=== PATIENT | male | born 1955 | race African-American/Black ===

== ENCOUNTER → 2016-11-17 | Outpatient (CLI) | payer OTHER ==
[~2016-11-17] VITALS: Ht 182.9 cm; Wt 81.2 kg
[~2016-11-17] MED LIST: B COMPLETE1 EAC1 PO; BLOOD PRESSURE MED; CELEBREX 200 M200 MG PO; GABAPENTIN800 M1 PO; GLUCOPHAGE XR500 MG PO; HYDROCHLOROTHIA25 M1 PO; HYDROCODON-ACE1 EAC5 PO; INSULIN; LIDOCAINE PATCH; LIDODERM 5%1 PATCH TOP; LISINOPRIL40 MG PO; METFORMIN HCL500 MG PO; METFORMIN PO; MOBIC15 MG PO; MORPHINE SULFAT15 M3 PO; MS CONTIN15 MG PO; MUSCLE RELAXER; NEURONTIN600 MG PO; NEURONTIN800 MG PO; NORCO 10-325 T1 EACH PO; NORVASC10 MG PO; OXECTA5 MG PO; OXYCODONE HCL 55 MG PO; OXYCODONE HCL5 M1 PO; PERCOCET 7.5-51 EACH PO; PREDNISONE 20 M20 MG PO; REMERON15 M1 PO; REMERON15 MG PO; SLEEPING PILL; TIZANIDINE HCL4 MG PO; VIAGRA100 MG PO; VIAGRA50 MG PO; VITAMIN B-12500 MCG PO; VITAMIN D 5050000 I1 PO; VITAMIN E600 UNIT PO; WATER PILL; ZANAFLEX4 MG PO; [UNRECOGNIZED DRUG - OTHER] PO
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
[2016-11-17 13:04] VITALS: BP 144/84
== END | disposition home or self-care (01) ==
LOC: PAIN 11-13 06:45
DX: M54.12 Radiculopathy, cervical region (principal); Z98.890 Other specified postprocedural states; M54.16 Radiculopathy, lumbar region; M17.0 Bilateral primary osteoarthritis of knee; F17.210 Nicotine dependence, cigarettes, uncomplicated

== ENCOUNTER → 2017-02-16 | Outpatient (CLI) | payer OTHER ==
[~2017-02-16] VITALS: Ht 182.9 cm; Wt 79.4 kg
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
[2017-02-16 10:10] VITALS: BP 146/91
== END | disposition home or self-care (01) ==
LOC: PAIN 07:10
DX: M54.16 Radiculopathy, lumbar region (principal); G89.29 Other chronic pain; M88.9 Osteitis deformans of unspecified bone; F17.210 Nicotine dependence, cigarettes, uncomplicated; Z79.891 Long term (current) use of opiate analgesic; Z98.890 Other specified postprocedural states; Z88.6 Allergy status to analgesic agent; Z88.8 Allergy status to other drugs, medicaments and biological substances; Z79.899 Other long term (current) drug therapy

== ENCOUNTER → 2017-07-13 | Outpatient (CLI) | payer OTHER ==
[~2017-07-13] VITALS: Ht 182.9 cm; Wt 86.1 kg
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
[2017-07-13 11:07] VITALS: BP 132/78
== END ==
LOC: PAIN 07:34
DX: M54.16 Radiculopathy, lumbar region (principal); M79.1 Myalgia; I10 Essential (primary) hypertension; Z98.890 Other specified postprocedural states

== ENCOUNTER → 2017-11-12 | Outpatient (CLI) | payer OTHER ==
[~2017-11-12] VITALS: Ht 182.9 cm; Wt 81.3 kg
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
[2017-11-12 11:02] VITALS: BP 136/83
== END | disposition home or self-care (01) ==
LOC: PAIN 06:53
DX: M53.3 Sacrococcygeal disorders, not elsewhere classified (principal); G89.29 Other chronic pain; M54.16 Radiculopathy, lumbar region; Z98.890 Other specified postprocedural states; F17.200 Nicotine dependence, unspecified, uncomplicated

== ENCOUNTER → 2017-11-26 | Outpatient (CLI) | payer OTHER ==
[~2017-11-26] VITALS: Ht 182.9 cm; Wt 78.0 kg
--- NOTE | ~2017-11-26 | HPC ---
[facility] [place] [address] PAIN MANAGEMENT CONSULTATION Name: DANA UMANZOR JR Room #: REG [facility].#: [id number] Admission: 11/26/17 Attend Phys: Trey Gutierrez DO Discharge: Date of : 55 Report #: [id number] THIS REPORT FOR: //name// CC: FAM unknown Trey Gutierrez The patient is a 62-year-old gentleman well known to the pain clinic being treated for lumbar radiculopathy, history of cervical decompressive laminectomy for myelopathy, axial back pain requiring complex medication management. Last seen in the pain clinic on 11/12/2017. He had acute exacerbation of left L5 radicular pain and low back pain following lifting his 's wheelchair. We did a left SI joint injection at last visit with good yet very transient relief of symptoms. He has ongoing lancinating pain down the L5 distribution. We elected to proceed with epidural injection under fluoroscopy today. ASSESSMENT: Symptomatic lumbar radiculopathy, left L5 distribution. PROCEDURE: Lumbar epidural injection under fluoroscopy. PROCEDURE NOTE: After both written and informed consent to include risk of spinal cord damage, increased pain, weakness and dural puncture, the patient was taken to the fluoroscopy suite, placed in the prone position. After sterile prep and drape, a skin wheal with lidocaine was raised. A 22-gauge epidural Tuohy needle was inserted in the midline at L5-S1 with good loss to resistance. Negative aspiration for cerebrospinal fluid or blood was noted. Then 1 mL of Omnipaque under biplanar fluoroscopy showed good spread within the epidural space. This was followed with 80 mg of triamcinolone plus 1 mL of 1.5% preservative-free Xylocaine, 0.5 mL Xylocaine was then injected to flush the needle; it was removed. The patient was monitored for an appropriate period of time and discharged in good and stable condition. <ELECTRONICALLY SIGNED> By: Trey Gutierrez DO 11/27/17 0654 [id number] Trey Gutierrez DO /nt
[2017-11-26 11:00] VITALS: BP 139/91
== END | disposition home or self-care (01) ==
LOC: PAIN 07:24
DX: M54.16 Radiculopathy, lumbar region (principal); Z98.890 Other specified postprocedural states; F17.210 Nicotine dependence, cigarettes, uncomplicated

== ENCOUNTER → 2018-03-12 | Outpatient (CLI) | payer OTHER ==
[~2018-03-12] VITALS: Ht 182.9 cm; Wt 81.6 kg
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
[2018-03-12 11:13] VITALS: BP 172/93
== END ==
LOC: PAIN 07:06
DX: M54.16 Radiculopathy, lumbar region (principal); M54.12 Radiculopathy, cervical region; Z79.899 Other long term (current) drug therapy; E11.9 Type 2 diabetes mellitus without complications

== ENCOUNTER → 2018-06-11 | Outpatient (CLI) | payer OTHER ==
[~2018-06-11] VITALS: Ht 182.9 cm; Wt 89.0 kg
[~2018-06-11] MED LIST changes: +FLEXERIL PO; +MEDROLDOSEPACK PO
[2018-06-11 09:07] VITALS: BP 145/78
--- NOTE | 2018-06-11 09:22 | NUR ---
Pain Clinic Assessment: 1. History of Osteoarthritis: DENIES History of Rheumatoid Arthritis: no 2. Height: 6 ft. 0 in. 182.9 cm. Weight: 196.2 lb. oz. 88.996 kg. Patient's BMI: 26.6 3. Vital Signs: BP: 145/78 Pulse: 82 Resp: 16 Temp: 02 Sat: 100 ECG Mon: 4. Pain Intensity: neck-10,back 7-8 5. Fall Risk: Dizziness: Y Needs help standing or walking: N Fallen in the last 3 months: N Fall risk comments: 6. Patient on Blood Thinner: None 7. History of Hypertension: Y 8. Opioid Therapy greater than 6 weeks: Y Opiate Contract Signed: 11/26/15 9. Risk Assessment Tool Provided: 4-moderate risk 10. Functional Assessment Tool: / 11. Recreational Drug Use: Never Drug Type: Tobacco Use: Current Every Day Smoker Tobacco Type: Cigars Amount or Packs/day: OCCASIONAL How Many Years: 44 Alcohol Use: No Frequency: Quant:
--- NOTE | 2018-06-14 07:11 | HPC ---
[facility] [address] [place] [address] PAIN MANAGEMENT CONSULTATION Name: DANA UMANZOR JR [facility] [id number] Admission: 06/11/18 Attend Phys: Shira Banerjee Discharge: Date of : 55 Report #: [id number] THIS REPORT FOR: //name// CC: Shira Banerjee FAM unknown DATE OF SERVICE: 06/11/2018 CHIEF COMPLAINT: Chronic low back pain, lumbar radiculopathy, status post decompression laminectomy and neck pain. HISTORY OF PRESENT ILLNESS: The patient returns today for medication refill for his ongoing chronic low back pain. Today, he is also complaining of significant neck pain. The patient has a history of cervical decompression laminectomy and was quite myelopathic prior to his neck surgery. He tells me that he started having some spasms in his neck on Thursday and has been significantly getting worse. Does have some radicular symptoms down both of his arms and most of his pain as the cause of spasms are in his neck area. He complains of 10/10 pain in his neck and his pain score today in his lower back is 7/8. He has tried his tizanidine that he takes for his normal muscle spasm that has not been helpful and he has been using a heating pad. He tells me that it has been making it hard to care for his who he cares for who is in a wheelchair. He does complain of some numbness and tingling also in his left arm. Pain is worse with moving, any activity, better with lying down and heating pad and his narcotic medication. He would like a refill of medications today and to try possibly a different muscle relaxant to see if that helps his neck. ALLERGIES: ASPIRIN AND MELOXICAM. CURRENT LIST OF MEDICATIONS: OxyIR 5 mg #75, 2-3 times a day, MS Contin 15 mg 3 times a day, tizanidine 4 mg up to 4 times a day, mirtazapine 15 mg at bedtime, metformin 500 mg twice a day, vitamin B12 daily, gabapentin 800 mg 3 times a day, vitamin E, amlodipine 10 mg daily and lisinopril 60 mg daily. PQRS: 1. He has a history of osteoarthritis in his lower back. He is not being treated for rheumatoid arthritis. 2. Height 6 feet, weight is 196, BMI is 26.6. 3. Vital signs: Blood pressure 145/78, pulse is 82, respirations 16, oxygen sat 100%. 4. Pain score 10/10 in his neck, 7-8/10 in his lower back. 5. Fall risk. He denies any falls in the last 3 months. He does not need help walking or standing. He does have some dizziness. 6. The patient is not on any blood thinners and does have a history of antihypertensive medications. 7. Opiate therapy is greater than 6 weeks, therefore [place] [address] PAIN MANAGEMENT CONSULTATION Name: DANA UMANZOR Room #: REG [facility] Carlos#: [id number] Admission: 06/11/18 Attend Phys: Shira Banerjee Discharge: Date of : 55 Report #: [id number] the chart. 8. His risk assessment tool is moderate and his functional assessment is a 55/70. 9. Recreational drug use, the patient denies. He does smoke cigars daily and does not drink alcohol. We did check the prescription monitoring system. The patient is on time for his medication refills today. He tells me that he does safeguard his medications and there are urine drug screens on the chart that are appropriate. PHYSICAL EXAMINATION: GENERAL: This is a well-developed, well-nourished black gentleman who appears his stated age. He is alert and orientated. His affect is appropriate. HEENT: Normocephalic, atraumatic. Extraocular eye muscles are intact. Sclerae are nonicteric. Mucous membranes are moist. NECK: Significant pain with range of motion, especially midline with some radiating pain into his left arm with some numbness and tingling. He does have a well-healed scar in his cervical area. MUSCULOSKELETAL: Upper extremity strength judged to be 5/5 for all major muscle groups. He does complain of some numbness and tingling in the C5 through C7 distribution in his left arm. Lower extremity muscle strength judged to be 5/5 in all major muscle groups. He does complain of some low back discomfort in the L4-L5 area in his back. He does walk with antalgic gait. IMPRESSION: 1. Lumbar radicular pain. 2. Cervical radicular pain, status post cervical decompression laminectomy. 3. Chronic back pain. 4. Diabetes. We reviewed the fact that opiate medications are being used to provide analgesia adequate to support activities of daily living, not attempting to achieve a specific pain score on the 0-10 Visual Analog Scale. The current opiate medications are providing sufficient analgesia to allow the patient to participate in activities of daily living. The patient is not exhibiting any aberrant behavior suggestive of drug diversion. The patient is not having any adverse reactions to medications. The patient is not suffering from daytime somnolence or mental acuity changes. The patient is managing opiate-induced constipation with appropriate suwh-dtn-qclmvyd agents and dietary considerations. The patient was counseled on concern for caution with operating a motor vehicle while using opiate medications. A physical exam was performed and the patient's functional status was evaluated. All patients with back pain were advised against the bed rest greater than 4 days and were advised to return to normal activities. Pain score assessment was noted and the treatment plan was reviewed with the patient. All current [facility] [address] [place] [address] PAIN MANAGEMENT CONSULTATION Name: DANA UMANZOR Room #: [facility] [id number] Admission: 06/11/18 Attend Phys: Shira Banerjee Discharge: Date of : 55 Report #: [id number] medications, both prescribed and OTC were reviewed and reconciled on the electronic medical record. Tobacco screening was accomplished and smoking cessation was advised when indicated. BMI was noted and diet/exercise modification was recommended for all patients following outside normal parameters. I reviewed with the patient today their responsibilities to safeguard prescription medications, reviewed their responsibility to utilize medications only as prescribed by the physician. They are to seek and receive pain medications only from 1 physician group ( [facility]). They are to use 1 pharmacy and keep the clinic informed if they change pharmacies. Their responsibilities include making followup visits in a timely fashion and to avoid abrupt discontinuation of medication usage. Their responsibilities further include bringing their medications (bottles from the pharmacy with residual pills) to the visit for possible confirmation of pill counts and the patient understands it is their responsibility to submit to random drug screens to ensure both that the medications prescribed are present, and that no other controlled substances are present. All prescriptions provided today were generated electronically. PLAN: 1. We discussed treatment options today. The patient tells me that his pain has significantly increased this week in his cervical area, unsure if it is related to the weather or if he pinched a nerve. Muscle relaxant that he takes tizanidine has not been helpful. We will try cyclobenzaprine 10 mg 3 times a day, #90, script given with one additional refill. The patient is to stop his tizanidine, likely try this muscle relaxant and see if it is more helpful in relieving some of his pain. He is to continue to take heat or alternate with ice to his neck and cautioned him not to use the heat on too long. 2. The patient was given a script for a Medrol Dosepak today to see if that helps reduce some of his inflammation that is in his neck. He does have significant history of cervical issues that required a decompression laminectomy. If this Medrol Dosepak does not help calm it down, we may try an injection by Dr. Pedroza and if that is not helpful, we will have him return to Dr. Montero, but the patient will try some medications to see if it is acute only a few days in nature at this point. The patient is agreeable with this plan of care. His last MRI is from 2013 also, so we will revisit that if maybe if the pain continues. 3. Script given for his MS Contin 15 mg, #90 to release today, 4 and 8-week and OxyIR 5 mg #75 to be released today, 4 and 8-week. 4. The patient will return in 2 weeks if his pain is not better in his neck, but if it has subsided with the medications then we will see him in 3 months' [facility] [address] [place] [address] PAIN MANAGEMENT CONSULTATION Name: DANA UMANZOR Room #: REG [facility] Gonzalez#: [id number] Admission: 06/11/18 Attend Phys: Shira Banerjee Discharge: Date of : 55 Report #: [id number] time frame. The patient is agreeable with this plan of care. The patient is seen in collaboration today with Dr. Pedroza. <ELECTRONICALLY SIGNED> By: Shira Banerjee 06/14/18 0711 1009 1251 Shira Banerjee /nt
== END ==
LOC: PAIN 06:49
DX: M54.16 Radiculopathy, lumbar region (principal); M54.12 Radiculopathy, cervical region; M96.1 Postlaminectomy syndrome, not elsewhere classified; G89.29 Other chronic pain; E11.9 Type 2 diabetes mellitus without complications; Z79.899 Other long term (current) drug therapy

== ENCOUNTER → 2018-09-03 | Outpatient (CLI) | payer OTHER ==
[~2018-09-03] VITALS: Ht 182.9 cm; Wt 87.1 kg
[2018-09-03 10:39] VITALS: BP 131/80
--- NOTE | 2018-09-03 10:42 | NUR ---
Pain Clinic Assessment: 1. History of Osteoarthritis: DENIES History of Rheumatoid Arthritis: no 2. Height: 6 ft. 0 in. 182.9 cm. Weight: 192.0 lb. oz. 87.091 kg. Patient's BMI: 26.0 3. Vital Signs: BP: 131/80 Pulse: 81 Resp: 16 Temp: 02 Sat: 100 ECG Mon: 4. Pain Intensity: 8 5. Fall Risk: Dizziness: N Needs help standing or walking: N Fallen in the last 3 months: Y Fall risk comments: 6. Patient on Blood Thinner: None 7. History of Hypertension: Y 8. Opioid Therapy greater than 6 weeks: Y Opiate Contract Signed: 11/26/15 9. Risk Assessment Tool Provided: 4-moderate risk 10. Functional Assessment Tool: 55/70 11. Recreational Drug Use: Never Drug Type: Tobacco Use: Current Every Day Smoker Tobacco Type: Amount or Packs/day: How Many Years: Alcohol Use: No Frequency: Quant:
--- NOTE | 2018-09-06 11:34 | HPC ---
[facility] [address] [address] PAIN MANAGEMENT CONSULTATION Name: DANA UMANZOR Room #: REG [facility].#: [id number] Admission: 09/03/18 ������������������ Attend Phys: Shira Banerjee Discharge: ������������������ Date of : 55 Report #: [id number] THIS REPORT FOR: //name// CC: Shira Banerjee FAM unknown DATE OF SERVICE: 09/03/2018 CHIEF COMPLAINT: Chronic low back pain, lumbar radiculopathy, neck pain and right shoulder pain. HISTORY OF PRESENT ILLNESS: This is a very pleasant 63-year-old gentleman who returns to the pain clinic today for refill of his medications for his ongoing low back pain. He tells me that he fell twice in July and since that time, he has been having right shoulder pain. He did go to the Emergency Room and had it x-rayed and he is [facility] an [facility] this [facility]. He does tell me that his back pain is managed with his medications, but the shoulder pain has been bothering him significantly. He is unable to lift his arm more than 90 degrees. His pain score is 8/10, worse with his walking, movement and activity. He does care for his , who is in a wheelchair. She is slowly regaining some feeling in her lower extremities and he is hopeful that she will be able to walk. The patient does tell me that he does work with her significantly and that does increase some of his pain as well. He denies any constipation or daytime sleepiness. ALLERGIES: ASPIRIN AND MELOXICAM. CURRENT MEDICATIONS: Gabapentin 800 mg 3 times a day, Remeron 15 mg a half at bedtime, vitamin E daily, amlodipine 10 mg daily, lisinopril 40 mg daily, vitamin B12 daily, metformin 500 mg b.i.d., morphine sulfate 15 mg t.i.d., oxycodone IR 5 mg 2-3 times a day and Flexeril 10 mg t.i.d. p.r.n. PQRS: 1. The patient has a history of osteoarthritis in his lower back. He is not being treated for rheumatoid arthritis. 2. Height 6 feet, weight is 192 and BMI is 26. 3. Vital signs, 131/80, pulse is 81, respirations 16 and oxygen sat is 100. 4. Pain score is 8/10. 5. Dizziness, the patient denies. He does not need help walking or standing. He has fallen in the past 3 months and has sought medical care. 6. The patient is not on any blood thinners. He does take medicine for hypertension. 7. Opioid therapy is greater than 6 weeks; therefore, an opioid signed contract is on the chart. 8. Risk assessment tool is moderate. His functional assessment is 55/70. 9. Recreational drug use, he denies. He does smoke cig[place] [address] PAIN MANAGEMENT CONSULTATION Name: DANA UMANZOR Room #: REG [facility] Gonzalez#: [id number] Admission: 09/03/18 ������������������ Attend Phys: Shira Banerjee Discharge: ������������������ Date of : 55 Report #: [id number] drink alcohol. We did check the prescription monitoring system. The patient is filling appropriately for his medications from our doctors and there is a recent drug screen on the chart. We will check that again in 3 months, then it will be due again. PHYSICAL EXAMINATION: GENERAL: This is a well-developed, well-nourished gentleman who appears his stated age. He is alert and orientated x 3. His affect is appropriate. HEENT: Normocephalic, atraumatic. Extraocular eye muscles are intact. Mucous membranes are moist. NECK: He complains of slight discomfort with range of motion. He does have a well-healed scar in his cervical area. MUSCULOSKELETAL: Upper extremity strength judged to be 4/5 on his right arm, 5/5 on his left arm. He complains of pain in his right shoulder. He is only able to lift his arm about 90 degrees. He definitely has a decreased range of motion in that shoulder since a recent fall. Lower extremity strength judged to be 5/5 in all major muscle groups. He complains of some discomfort at the L4-L5 region. He does walk with a slightly antalgic gait. IMPRESSION: 1. Lumbar radicular pain. 2. Cervical radicular pain, status post cervical decompression and laminectomy. 3. Chronic low back pain. 4. Diabetes. 5. Right shoulder pain. We reviewed the fact that opiate medications are being used to provide analgesia adequate to support activities of daily living, not attempting to achieve a specific pain score on the 0-10 Visual Analog Scale. The current opiate medications are providing sufficient analgesia to allow the patient to participate in activities of daily living. The patient is not exhibiting any aberrant behavior suggestive of drug diversion. The patient is not having any adverse reactions to medications. The patient is not suffering from daytime somnolence or mental acuity changes. The patient is managing opiate-induced constipation with appropriate opew-kvy-wdbrnhm agents and dietary considerations. The patient was counseled on concern for caution with operating a motor vehicle while using opiate medications. A physical exam was performed and the patient's functional status was evaluated. All patients with back pain were advised against the bed rest greater than 4 days and were advised to return to normal activities. Pain score assessment was noted and the treatment plan was reviewed with the patient. All current medications, both prescribed and OTC were reviewed and reconciled on the electronic medical record. Tobacco screening was accomplished and smoking [facility] [address] [place] [address] PAIN MANAGEMENT CONSULTATION Name: SUSAN UMANZORELISEO Cooper Room #: REG [facility]..#: [id number] Admission: 09/03/18 ������������������ Attend Phys: Shira Banerjee Discharge: ������������������ Date of : 55 Report #: [id number] cessation was advised when indicated. BMI was noted and diet/exercise modification was recommended for all patients following outside normal parameters. I reviewed with the patient today their responsibilities to safeguard prescription medications, reviewed their responsibility to utilize medications only as prescribed by the physician. They are to seek and receive pain medications only from 1 physician group ( [facility]). They are to use 1 pharmacy and keep the clinic informed if they change pharmacies. Their responsibilities include making followup visits in a timely fashion and to avoid abrupt discontinuation of medication usage. Their responsibilities further include bringing their medications (bottles from the pharmacy with residual pills) to the visit for possible confirmation of pill counts and the patient understands it is their responsibility to submit to random drug screens to ensure both that the medications prescribed are present, and that no other controlled substances are present. All prescriptions provided today were generated electronically. PLAN: 1. We discussed treatment options with the patient today. The patient tells me that his medications are very helpful. He finds that the Medrol Dosepak that we gave him on his last visit did help relieve his neck pain significantly. He still does complain of it occasionally. At the last visit, we also switched him from tizanidine to Flexeril that the patient has been taking at bedtime and he has found that very helpful. He does not need refills of that medication today. 2. Prescriptions given for MS Contin 15 mg, #90 for today, 4 and 8-week release and OxyIR 5 mg, #75 for today, 4 and 8-week release. This places his CDC morphine equivalence at 75-80 per day, well under the guidelines of 90 or below. 3. The patient does complain of this right shoulder pain. He is going to [facility]. He did go to the ER after he fell, which did not show any broken bones, but he is unsure that there might be a tear in there. He does have decreasing strength and weakness in that arm and he is awaiting his appointment with his [facility] doctor. 4. The patient does continue to care for his . She is slowly getting better, but that also attributes to his generalized pain since he is caring for her, who is in a wheelchair. 5. The patient will be seen in [address] Pedroza did see the patient in collaborative care. ��������������������������������������������� <ELECTRONICALLY SIGNED> ���������������������������������������� By: Shira Banerjee ��������������������������������������������� 09/06/18 1134 1134 [id number] Shira Banerjee /mike
== END ==
LOC: PAIN 06:58
DX: M54.16 Radiculopathy, lumbar region (principal); M54.12 Radiculopathy, cervical region; M96.1 Postlaminectomy syndrome, not elsewhere classified; E11.9 Type 2 diabetes mellitus without complications; M25.511 Pain in right shoulder; Z79.899 Other long term (current) drug therapy

== ENCOUNTER → 2019-01-26 | Outpatient (CLI) | payer OTHER ==
[~2019-01-26] VITALS: Ht 182.9 cm; Wt 125.3 kg
--- NOTE | ~2019-01-26 | HPC ---
[facility] [place] [address] PAIN MANAGEMENT CONSULTATION Name: MYA UMANZORZO AMILCAR Room #: REG [facility]#: [id number] Admission: 01/26/19 Attend Phys: Kee Pedroza MD Discharge: Date of : 55 Report #: [id number] THIS REPORT FOR: //name// CC: MADDIE physician/PCP Kee Pedroza DATE OF SERVICE: 01/26/2019 CHIEF COMPLAINT: "Here for medications and the spring and fall times are the worst for my pain." HISTORY: The patient is a 63-year-old gentleman who has been followed in the Pain Clinic. He has a long history of chronic pain. He has had cervical decompression laminectomies. He suffered from myelopathy. He has also complained of pain in the lower portion of his back and has had surgery. He continues to care for his . He is wheelchair bound. He does note increased pain and discomfort when he is following lifting her. He has had SI joint injections in the past. He has undergone epidural steroid injections and found those beneficial as well. He has returned today for renewal of his medications. This is the fall portion of the year. He notes that the weather pattern changes exacerbate his pain and discomfort and the most problematic at this time of year as well as in the spring. He has returned today with the hope of renewing his medications. He has had no complications with their use. States that he has taken the medications as prescribed. ALLERGIES: ASPIRIN AND MELOXICAM. CURRENT MEDICATIONS: OxyIR 5 mg 75 tablets, 2 to 3 times a day, MS Contin 15 mg 3 times daily, tizanidine 4 mg up to 4 tablets daily, mirtazapine 15 mg at bedtime, metformin 500 mg b.i.d., vitamin B12 daily, gabapentin 800 mg 3 times daily, vitamin E, amlodipine 10 mg daily, lisinopril 60 mg daily. PAIN CLINIC ASSESSMENT AND PQRS: 1. The patient has a history of osteoarthritic changes in his lower back as well as in the upper neck area. He is not being treated for rheumatoid arthritis. 2. Height 6 feet, weight 276 pounds, BMI is 37.5. 3. Vital signs: Blood pressure 135/74, pulse 70, respiratory rate 16, room air saturation 99%. 4. Pain intensity 9-10/10. 5. Fall history: The patient has not fallen in the last 3 months. 6. Blood thinner. The patient is not on a blood thinning medication. 7. Hypertension. The patient is being treated for hypertension. 8. Opioids greater than 6 weeks. The patient receives medication from one source, pain clinic. Pain score moderate for opioid risk. 9. Functional assessment tool 55/70. [place] [address] PAIN MANAGEMENT CONSULTATION Name: DANA UMANZOR JR Room #: REG [facility]#: [id number] Admission: 01/26/19 Attend Phys: Kee Pedroza MD Discharge: Date of : 55 Report #: [id number] 10. Recreational drug use. The patient denies. 11. Tobacco: The patient smokes 3 cigarettes daily. 12. Alcohol: The patient denies significant alcohol intake. PHYSICAL EXAMINATION: GENERAL: The patient is a well-developed, well-nourished black male. Appears his stated age. He is alert and oriented x 3. His affect is appropriate. Speech is fluent. HEENT: Normocephalic, atraumatic. Extraocular eye muscles intact. The patient has some slightly discolored sclerae, does not appear icteric. NECK: The patient has a well-healed scar in the cervical area. Some decreased range of motion. As a result of this, neck without bruits or adenopathy. HEART: Regular rate. ABDOMEN: Nontender. LUNGS: Clear to auscultation. MUSCULOSKELETAL: Upper extremity muscle strength judged to be 5-/5 for the major muscle groups in the upper extremity. The patient complains of pain in the lower portion of his back that radiates down to the lower portion of his back in the L4-L5 dermatomal distribution. The patient walks and ambulates with a cane. Has pain and discomfort in his knees bilaterally. IMPRESSION: 1. Lumbar radiculopathy. 2. Cervical radiculopathy. 3. Chronic back pain. 4. Diabetes. RECOMMENDATIONS: We discussed treatment options with the patient. At this juncture, we will continue with his medications. He feels that the medications are helpful. He is taking them as prescribed. He is not having any concerns. He feels that the Flexeril medication helps with muscle spasms. Feels that the Remeron is helpful at improving sleep. Takes the morphine as directed three times daily and feels that this medication is beneficial. He is able to think clearly on his current medical regimen. He uses oxycodone 5 mg 1 p.o. b.i.d. to t.i.d., total of 75 tablets per month has been provided for this problem. We will continue with the patient's medication. He will continue with the complex medical management using opioids to help control his pain. Hopefully, he will note an improvement in his pain as we moved from the fall portion of the year to winter. We would like to thank you for letting us participate in his care. We hope he continues to improve. By: 1421 1555 Kee Pedroza MD /ESTELA
[2019-01-26 11:51] VITALS: BP 135/774
--- NOTE | 2019-01-26 11:52 | NUR ---
Pain Clinic Assessment: 1. History of Osteoarthritis: DENIES History of Rheumatoid Arthritis: no 2. Height: 6 ft. 0 in. 182.9 cm. Weight: 276.2 lb. oz. 125.284 kg. Patient's BMI: 37.5 3. Vital Signs: BP: 135/774 Pulse: 70 Resp: 16 Temp: 02 Sat: 99 ECG Mon: 4. Pain Intensity: 9-10 5. Fall Risk: Dizziness: N Needs help standing or walking: N Fallen in the last 3 months: Y Fall risk comments: 6. Patient on Blood Thinner: None 7. History of Hypertension: Y 8. Opioid Therapy greater than 6 weeks: Y Opiate Contract Signed: 11/26/15 9. Risk Assessment Tool Provided: 4-moderate risk 10. Functional Assessment Tool: / 11. Recreational Drug Use: Never Drug Type: Tobacco Use: Current Every Day Smoker Tobacco Type: Cigarettes Amount or Packs/day: 3 CIGS How Many Years: Alcohol Use: No Frequency: Quant:
== END ==
LOC: PAIN 10:57
DX: M54.5 Low back pain (principal); M54.16 Radiculopathy, lumbar region; M54.12 Radiculopathy, cervical region; E11.9 Type 2 diabetes mellitus without complications; Z79.84 Long term (current) use of oral hypoglycemic drugs; Z88.8 Allergy status to other drugs, medicaments and biological substances; Z79.899 Other long term (current) drug therapy

== ENCOUNTER → 2019-05-27 | Outpatient (CLI) | payer OTHER ==
[~2019-05-27] VITALS: Ht 182.9 cm; Wt 81.6 kg
[2019-05-27 08:54] VITALS: BP 135/78
--- NOTE | 2019-05-27 08:59 | NUR ---
Pain Clinic Assessment: 1. History of Osteoarthritis: DENIES History of Rheumatoid Arthritis: no 2. Height: 6 ft. 0 in. 182.9 cm. Weight: 180.0 lb. oz. 81.648 kg. Patient's BMI: 24.4 3. Vital Signs: BP: 135/78 Pulse: 71 Resp: 16 Temp: 02 Sat: 99 ECG Mon: 4. Pain Intensity: 6 5. Fall Risk: Dizziness: N Needs help standing or walking: N Fallen in the last 3 months: Y Fall risk comments: 6. Patient on Blood Thinner: None 7. History of Hypertension: Y 8. Opioid Therapy greater than 6 weeks: Y Opiate Contract Signed: 11/26/15 9. Risk Assessment Tool Provided: LOW 10. Functional Assessment Tool: 55/ 11. Recreational Drug Use: Never Drug Type: Tobacco Use: Current Every Day Smoker Tobacco Type: Cigars Amount or Packs/day: 3 How Many Years: Alcohol Use: No Frequency: Quant:
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
== END ==
LOC: PAIN 06:41
DX: M25.511 Pain in right shoulder (principal); M54.16 Radiculopathy, lumbar region; M54.12 Radiculopathy, cervical region; M54.5 Low back pain; G89.29 Other chronic pain; E11.9 Type 2 diabetes mellitus without complications

== ENCOUNTER → 2019-09-21 | Outpatient (CLI) | payer OTHER ==
[~2019-09-21] VITALS: Ht 182.9 cm; Wt 83.8 kg
[~2019-09-21] MED LIST changes: +NARCAN4 MG NARES; +REMERON15 M2 PO
[2019-09-21 09:31] VITALS: BP 130/84
--- NOTE | 2019-09-21 09:53 | NUR ---
Pain Clinic Assessment: 1. History of Osteoarthritis: RIGHT SHOULDER History of Rheumatoid Arthritis: no 2. Height: 6 ft. 0 in. 182.9 cm. Weight: 184.8 lb. oz. 83.825 kg. Patient's BMI: 25.1 3. Vital Signs: BP: 130/84 Pulse: 73 Resp: 16 Temp: 02 Sat: 97 ECG Mon: 4. Pain Intensity: 7 5. Fall Risk: Dizziness: N Needs help standing or walking: N Fallen in the last 3 months: N Fall risk comments: 6. Patient on Blood Thinner: None 7. History of Hypertension: Y 8. Opioid Therapy greater than 6 weeks: Y Opiate Contract Signed: 11/26/15 9. Risk Assessment Tool Provided: LOW 10. Functional Assessment Tool: / 11. Recreational Drug Use: Never Drug Type: Tobacco Use: Current Every Day Smoker Tobacco Type: Cigarettes Amount or Packs/day: How Many Years: 40 Alcohol Use: No Frequency: Quant:
--- NOTE | 2019-09-28 08:03 | HPC ---
[facility] [place] [address] PAIN MANAGEMENT CONSULTATION Name: DANA UMANZOR JR Room #: REG [facility].#: [id number] Admission: 09/21/19 Attend Phys: Kee Pedroza MD Discharge: Date of : 55 Report #: [id number] THIS REPORT FOR: cc: Gurinder Montero MD, John A. MD Brown,Kee Wisdom MD ~ CC: Gurinder Pedroza DATE OF SERVICE: 09/21/2019 CHIEF COMPLAINT: Right shoulder pain, low back and leg pain. HISTORY: The patient is a 64-year-old gentleman who has been followed in the pain clinic. As you may recall, he has pain in his neck. He has undergone cervical decompression. He has had laminectomies. Has symptomatic myelopathy. Has pain in his lower back. Has had surgery in the low back area. Continues to take care of his who is ill. She is in a wheelchair, lifting and providing daily care, as a primary caregiver exacerbates his discomfort. He has had epidural steroid injections in the past. He has returned today for evaluation. Rates his pain as a 7/10. He would like to have his medications renewed. ALLERGIES: ASPIRIN AND MELOXICAM. CURRENT MEDICATIONS: OxyIR 5 mg 2-3 tablets daily, MS Contin 15 mg t.i.d., tizanidine 4 mg 4 tablets daily, mirtazapine 15 mg at bedtime, metformin 500 mg b.i.d., vitamin B12 daily, gabapentin 800 mg t.i.d., vitamin E, amlodipine 10 mg daily, and lisinopril 60 mg daily. PAIN CLINIC ASSESSMENT/PQRS: 1. The patient has a history of osteoarthritis in his low back. Also, has pain in his upper neck. He is not being treated for rheumatoid arthritis. 2. Height 6 feet 0, weight 184 pounds, BMI is 25.1. 3. Vital signs: Blood pressure 130/84, pulse is 73, respiratory rate 16, room air saturation 97%. 4. Pain intensity 6-12/08. 5. Fall history: The patient has not fallen in the last 3 months. 6. Blood thinner. The patient is not on a blood thinning medication. 7. Hypertension. The patient is being treated for hypertension. 8. Opioids greater than 6 weeks. The patient receives medication from the pain clinic. 9. Risk assessment tool, low. 10. Functional assessment tool, 55/70. 11. Recreational drug use. The patient denies. 12. Tobacco: The patient smoked for 40 years. 13. Alcohol. The patient denies frequent use of alcoholic beverages. [address] [address] PAIN MANAGEMENT CONSULTATION Name: NOÉDANA Room #: REG [facility] Maximino.#: [id number] Admission: 09/21/19 Attend Phys: Kee Pedroza MD Discharge: Date of : 55 Report #: [id number] PHYSICAL EXAMINATION: GENERAL: The patient is a well-developed, well-nourished black male, appears his stated age. He is alert and oriented x 3. His affect is appropriate. Speech is fluent. HEENT: Normocephalic, atraumatic. Extraocular eye muscles intact. Sclerae nonicteric. Mucous membranes are moist. NECK: Without adenopathy or JVD. HEART: Regular rate. ABDOMEN: Nontender. LUNGS: Clear to auscultation. MUSCULOSKELETAL: Upper extremity muscle strength judged to be 5-/5 for the major muscle groups in the upper extremity. The patient has pain and discomfort in lower portion of his back. Rates his pain in the L3-L4 dermatomal area more problematic, particularly when he gets up in the morning. Has some generalized whole body soreness today. Does ambulate with use of a cane. IMPRESSION: 1. Lumbar radiculopathy. 2. Cervical radiculopathy. 3. Chronic low back pain. 4. Diabetes. RECOMMENDATIONS: The patient states that he continues to give care to his . He uses a hoist to help get her up and move her around. These things continue to exacerbate his pain and discomfort. He feels that his medications are working reasonably well. He would like to have the medications renewed. A script for his medications of OxyIR 5 mg 1 p.o. b.i.d. has been provided. The patient will also continue with morphine sulfate 15 mg 1 p.o. t.i.d. He will call us, if he has any concerns. The patient is aware that these medications can become less effective over time because of development of tolerance. He is able to think clearly. They are not causing any type of confusion. The patient will also continue with mirtazapine 15 mg at bedtime. A script for Naloxone 4 mg spray has been provided. We discussed the use of this medication. We would like to thank you for letting us participate in his care. We hope he continues to improve. <ELECTRONICALLY SIGNED> By: Kee Pedroza MD 09/28/19 [id number] Kee Pedroza MD /[facility]
== END ==
LOC: PAIN 07:01
DX: M54.16 Radiculopathy, lumbar region (principal); M54.12 Radiculopathy, cervical region; E11.9 Type 2 diabetes mellitus without complications; M25.511 Pain in right shoulder

== ENCOUNTER → 2020-01-11 | Outpatient (CLI) | payer OTHER ==
[~2020-01-11] VITALS: Ht 182.9 cm; Wt 79.7 kg
[~2020-01-11] MED LIST changes: +VITAMIN B12-FO1 EAC1 PO
[2020-01-11 13:00] VITALS: BP 138/90
--- NOTE | 2020-01-11 13:16 | NUR ---
Pain Clinic Assessment: 1. History of Osteoarthritis: RIGHT SHOULDER History of Rheumatoid Arthritis: no 2. Height: 6 ft. 0 in. 182.9 cm. Weight: 175.8 lb. oz. 79.742 kg. Patient's BMI: 23.8 3. Vital Signs: BP: 138/90 Pulse: 76 Resp: 14 Temp: 02 Sat: 100 ECG Mon: 4. Pain Intensity: 7 5. Fall Risk: Dizziness: N Needs help standing or walking: N Fallen in the last 3 months: N Fall risk comments: 6. Patient on Blood Thinner: None 7. History of Hypertension: Y 8. Opioid Therapy greater than 6 weeks: Y Opiate Contract Signed: 11/26/15 9. Risk Assessment Tool Provided: LOW-0 10. Functional Assessment Tool: 55/70 11. Recreational Drug Use: Never Drug Type: Tobacco Use: Current Every Day Smoker Tobacco Type: Cigars Amount or Packs/day: 3 How Many Years: 43 Alcohol Use: No Frequency: Quant:
--- NOTE | 2020-01-12 14:46 | HPC ---
[facility] [address] [address] PAIN MANAGEMENT CONSULTATION Name: DANA UMANZOR JR Room #: REG [facility].#: [id number] Admission: 01/11/20 Attend Phys: Shira Banerjee Discharge: Date of : 55 Report #: [id number] THIS REPORT FOR: cc: Gurinder Montero MD, John A. MD Hocker,Shira JAY ~ DATE OF SERVICE: 01/11/2020 CHIEF COMPLAINT: Low back pain, bilateral leg pain and right shoulder pain. HISTORY OF PRESENT ILLNESS: This is a very pleasant 64-year-old gentleman who reports to me today that he has fallen a couple of weeks ago when there was standing water in his basement. He was attempting to move his son's motorcycle where he tripped and fell against the wall, landing on the floor. Since that time, he has been complaining of low back pain that radiates into his legs. He did not seek medical attention. He has been dealing with this at home. He states that he is quite stiff and aching feeling in his lower back that is radiating into his legs, rating his pain score 7/10. Since this time, he has been relaxing at home, utilizing heat and ice and his pain medications as well as an occasional anti-inflammatory medicine. The patient states that he normally feels that the pain medications are beneficial in controlling most of his pain. ALLERGIES: ASPIRIN AND MELOXICAM. CURRENT MEDICATIONS: Vitamin B12, Remeron, OxyIR, morphine sulfate 15 mg t.i.d., Flexeril, metformin, vitamin B12, gabapentin, vitamin E, amlodipine and lisinopril. PQRS: 1. The patient has a history of osteoarthritis in his lower back and neck. Denies any rheumatoid arthritis. 2. Height is 6 feet, weight is 175, BMI is 23. 3. Vital signs 138/90, pulse is 76, respirations 14, oxygen sat is 100. 4. Pain score is 7/10 today. 5. The patient denies dizziness, does not need help walking or standing. He has fallen in the last 3 months. 6. The patient is not on any blood thinners, but does take medicine for hypertension. 7. His opioid therapy is greater than 6 weeks; therefore, an opioid signed contract is on the chart. His risk assessment is low. Functional assessment is 55/70. 8. He denies any recreational drug use. Currently, he is a current smoker and does not drink alcohol. [address] [address] PAIN MANAGEMENT CONSULTATION Name: DANA UMANZOR Room #: REG [facility]#: [id number] Admission: 01/11/20 Attend Phys: Shira Banerjee Discharge: Date of : 55 Report #: [id number] According to the prescription monitoring system, the patient is filling appropriately for his medications, filling them in a timely fashion. He is due to fill those medications today. PHYSICAL EXAMINATION: GENERAL: This is a well-developed, well-nourished black gentleman who appears his stated age, placing his current pain score at 7/10 today. His affect is appropriate and he is a good historian. HEENT: Normocephalic, atraumatic. Extraocular eye muscles are intact. Sclerae are nonicteric. He is wearing a mask. NECK: Without adenopathy or JVD. MUSCULOSKELETAL: Upper extremity strength judged to be 5/5 in all major muscle groups. He has discomfort in the lower portion of his back that radiates down the L3-L4, L4-L5 dermatomal distribution down his leg, greater on the left than the right. He is able to ambulate with a slightly antalgic gait. IMPRESSION: 1. Lumbar radiculopathy. 2. Cervical radiculopathy. 3. Chronic low back pain. 4. Diabetes. 5. Opioid management of medications following written agreement. We reviewed the fact that opiate medications are being used to provide analgesia adequate to support activities of daily living, not attempting to achieve a specific pain score on the 0-10 Visual Analog Scale. The current opiate medications are providing sufficient analgesia to allow the patient to participate in activities of daily living. The patient is not exhibiting any aberrant behavior suggestive of drug diversion. The patient is not having any adverse reactions to medications. The patient is not suffering from daytime somnolence or mental acuity changes. The patient is managing opiate-induced constipation with appropriate [id number] agents and dietary considerations. The patient was counseled on concern for caution with operating a motor vehicle while using opiate medications. PLAN: 1. We discussed treatment options with the patient today. The patient finds his medications usually beneficial in controlling his pain, though he has had a recent flare from a fall. We did discuss possible injections by Dr. Pedroza. If the pain continues greater than a couple of weeks, the patient will call to set up a lumbar epidural steroid injection for his lumbar radiculopathy by Dr. Pedroza. 2. We will have Dr. Pedroza send his medications electronically today for his morphine sulfate 15 mg, #90, for today, 4 and 8-week release as well as his oxycodone 5 mg, #75. This does place the patient at 67 morphine mEq per day according to the CDC guidelines. [address] [address] PAIN MANAGEMENT CONSULTATION Name: DANA UMANZOR JR Room #: [facility] [address] MargaritaNaomi#: [id number] Admission: 01/11/20 Attend Phys: Shira Banerjee Discharge: Date of : 55 Report #: [id number] 3. The patient will return in 3 months or as needed. The patient seen today under collaboration with Dr. Pedroza. <ELECTRONICALLY SIGNED> By: Shira Banerjee 01/12/20 1446 [id number] 1552 Shira Banerjee /nt
== END ==
LOC: PAIN 06:58
PROVIDERS: ATTEND Clinical Nurse Specialist Adult Health
DX: G89.29 Other chronic pain (principal); M54.12 Radiculopathy, cervical region; M54.16 Radiculopathy, lumbar region; E11.9 Type 2 diabetes mellitus without complications; Z88.8 Allergy status to other drugs, medicaments and biological substances; Z68.23 Body mass index [BMI] 23.0-23.9, adult; Z79.891 Long term (current) use of opiate analgesic; Z79.899 Other long term (current) drug therapy

== ENCOUNTER → 2020-05-04 | Outpatient (CLI) | payer OTHER ==
[~2020-05-04] VITALS: Ht 182.9 cm; Wt 80.3 kg
[2020-05-04 14:22] VITALS: BP 133/78
--- NOTE | 2020-05-04 14:27 | NUR ---
Pain Clinic Assessment: 1. History of Osteoarthritis: RIGHT SHOULDER History of Rheumatoid Arthritis: no 2. Height: 6 ft. 0 in. 182.9 cm. Weight: 177.0 lb. oz. 80.287 kg. Patient's BMI: 24.0 3. Vital Signs: BP: 133/78 Pulse: 77 Resp: 18 Temp: 02 Sat: 100 ECG Mon: 4. Pain Intensity: 6 5. Fall Risk: Dizziness: N Needs help standing or walking: N Fallen in the last 3 months: Y Fall risk comments: 6. Patient on Blood Thinner: None 7. History of Hypertension: Y 8. Opioid Therapy greater than 6 weeks: Y Opiate Contract Signed: 11/26/15 9. Risk Assessment Tool Provided: LOW-0 10. Functional Assessment Tool: 55/70 11. Recreational Drug Use: Never Drug Type: Tobacco Use: Current Every Day Smoker Tobacco Type: Cigars Amount or Packs/day: 3 How Many Years: Alcohol Use: No Frequency: Quant:
== END ==
LOC: PAIN 06:53
PROVIDERS: ATTEND Anesthesiology Pain Medicine
DX: M54.16 Radiculopathy, lumbar region (principal); M54.12 Radiculopathy, cervical region; E11.9 Type 2 diabetes mellitus without complications; G89.29 Other chronic pain; Z87.891 Personal history of nicotine dependence; Z79.891 Long term (current) use of opiate analgesic; Z79.899 Other long term (current) drug therapy

== ENCOUNTER → 2020-08-24 | Outpatient (CLI) | payer OTHER ==
[~2020-08-24] VITALS: Ht 185.4 cm; Wt 82.9 kg
[2020-08-24 12:28] VITALS: BP 146/91
--- NOTE | 2020-08-24 12:34 | NUR ---
Pain Clinic Assessment: 1. History of Osteoarthritis: RIGHT SHOULDER History of Rheumatoid Arthritis: no 2. Height: 6 ft. 1 in. 185.4 cm. Weight: 182.8 lb. oz. 82.918 kg. Patient's BMI: 24.1 3. Vital Signs: BP: 146/91 Pulse: 82 Resp: 16 Temp: 02 Sat: 100 ECG Mon: 4. Pain Intensity: 8 5. Fall Risk: Dizziness: N Needs help standing or walking: N Fallen in the last 3 months: N Fall risk comments: 6. Patient on Blood Thinner: None 7. History of Hypertension: Y 8. Opioid Therapy greater than 6 weeks: Y Opiate Contract Signed: 11/26/15 9. Risk Assessment Tool Provided: LOW-0 10. Functional Assessment Tool: 55/70 11. Recreational Drug Use: Never Drug Type: Tobacco Use: Current Every Day Smoker Tobacco Type: Amount or Packs/day: How Many Years: Alcohol Use: No Frequency: Quant:
== END ==
LOC: PAIN 07:01
PROVIDERS: ATTEND Anesthesiology Pain Medicine
DX: M54.16 Radiculopathy, lumbar region (principal); M54.12 Radiculopathy, cervical region; G89.29 Other chronic pain; E11.9 Type 2 diabetes mellitus without complications; Z88.8 Allergy status to other drugs, medicaments and biological substances; Z79.899 Other long term (current) drug therapy

== ENCOUNTER → 2020-12-19 | Outpatient (CLI) | payer OTHER ==
[~2020-12-19] VITALS: Ht 185.4 cm; Wt 78.7 kg
[~2020-12-19] MED LIST changes: +MIRTAZAPINE15 M2 PO
[2020-12-19 09:55] VITALS: BP 131/78
--- NOTE | 2020-12-19 10:35 | NUR ---
Pain Clinic Assessment: 1. History of Osteoarthritis: RIGHT SHOULDER KNEES BACK History of Rheumatoid Arthritis: no 2. Height: 6 ft. 1 in. 185.4 cm. Weight: 173.6 lb. oz. 78.744 kg. Patient's BMI: 22.9 3. Vital Signs: BP: 131/78 Pulse: 66 Resp: 14 Temp: 02 Sat: 100 ECG Mon: 4. Pain Intensity: 8 5. Fall Risk: Dizziness: N Needs help standing or walking: N Fallen in the last 3 months: Y Fall risk comments: 6. Patient on Blood Thinner: None 7. History of Hypertension: Y 8. Opioid Therapy greater than 6 weeks: Y Opiate Contract Signed: 11/26/15 9. Risk Assessment Tool Provided: LOW-0 10. Functional Assessment Tool: 55/70 11. Recreational Drug Use: Never Drug Type: Tobacco Use: Current Every Day Smoker Tobacco Type: Cigarettes Amount or Packs/day: 4 How Many Years: Alcohol Use: No Frequency: Quant:
--- NOTE | 2020-12-20 13:22 | HPC ---
[facility] [address] [place] [address] PAIN MANAGEMENT CONSULTATION Name: DANA UMANZOR JR Room #: REG [facility].#: [id number] Admission: 12/19/20 Attend Phys: Shira Banerjee Discharge: Date of : 55 Report #: [id number] THIS REPORT FOR: cc: Gurinder Montero MD, John A. MD Hocker, Amanda CNS ~ cc: Ellis Pedroza MD DATE OF SERVICE: 12/19/2020 CHIEF COMPLAINT: Low back pain with lumbar radiculopathy. HISTORY OF PRESENT ILLNESS: This is a very pleasant 65-year-old gentleman who returns to the pain clinic for renewal of his medications. Today, he is reporting the majority of his pain is in his low back, though he does have ongoing cervical issues as well. He has had previous laminectomies and cervical decompressions. He reports that his pain is radiating from his back down his left leg to his foot. He is also complaining of significant knee pain, which he reports is [id number] and needs to have surgery. 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 This causes significant pain for him due to having to assist her in all of her movements and care. Today, his pain score is an 8/10. He describes it as a pain that is worse with any movement, standing for prolonged periods of time. The patient states that his medication for his anti-depression and sleep, Remeron is very beneficial, allowing him to sleep. Unfortunately, his does call him at some nights and wakes him up, but he finds overall this medication has been beneficial. ALLERGIES: ASPIRIN AND MELOXICAM. CURRENT LIST OF MEDICATIONS: Lisinopril, amlodipine, vitamin E. gabapentin, cyclobenzaprine, metformin, Flexeril, mirtazapine, morphine sulfate 15 mg t.i.d., oxycodone 5 mg p.r.n. PQRS: 1. He has history of osteoarthritis in his right shoulder as well as his knees bilaterally and his spine. Height is 6 feet 1 inch, weight is 173. 2. Vital signs: Blood pressure 131/78, pulse is 16, oxygen sat is 100. 3. Pain score is 8/10. 4. Fall risk, denies dizziness. He does not need assistance with ambulation, but he has fallen in the last 3 months, but did not seek any medical attention. 5. The patient is not on any blood thinners, but does take medicine for hypertension. 6. Opioid therapy is greater than 6 weeks; therefore, an opioid signed contract is on the chart. [address] [address] PAIN MANAGEMENT CONSULTATION Name: DANA UMANZOR Room #: REG [facility].#: [id number] Admission: 12/19/20 Attend Phys: Shira Banerjee Discharge: Date of : 55 Report #: [id number] 7. Risk assessment is low. Functional assessment is 55/70. 8. Recreational drug use, he denies. He is a current smoker of about 4 cigarettes a day and denies any alcohol use. According to the prescription monitoring system, he is filling appropriately. He does need to fill his oxycodone today, which has been a month and a half since his last fill. His morphine mEq according to the CDC guidelines is 60 MMEs. PHYSICAL EXAMINATION: GENERAL: This is alert and orientated, slightly depressed 65-year-old gentleman who is well developed and well nourished. He appears his stated age. Placing his pain score at 8/10. HEENT: Normocephalic, atraumatic. Extraocular eye muscles are intact. Mucous membranes are moist. He is wearing a mask. NECK: Without adenopathy or JVD. Upper extremity strength is symmetrical at 5/5. MUSCULOSKELETAL: He has decreased range of motion in his right shoulder. The patient is without scoliosis, kyphosis, or lordosis. Tenderness in the lumbosacral region that radiates down his left leg greater than his right to his foot. Lower extremity strength are symmetrical at 5/5. He has tenderness in his bilateral knees. No edema noted today. IMPRESSION: 1. Lumbar radiculopathy. 2. Cervical radiculopathy. 3. Chronic low back pain. 4. Diabetes. 5. Depression. 6. Complex medical management utilizing scheduled opioid medications. We reviewed the fact that opiate medications are being used to provide analgesia adequate to support activities of daily living, not attempting to achieve a specific pain score on the 0-10 Visual Analog Scale. The current opiate medications are providing sufficient analgesia to allow the patient to participate in activities of daily living. The patient is not exhibiting any aberrant behavior suggestive of drug diversion. The patient is not having any adverse reactions to medications. The patient is not suffering from daytime somnolence or mental acuity changes. The patient is managing opiate-induced constipation with appropriate [id number] agents and dietary considerations. The patient was counseled on concern for caution with operating a motor vehicle while using opiate medications. PLAN: 1. We discussed treatment options with the patient today. The patient states that his medications are beneficial in helping decrease his pain. He does take his oxycodone very sparingly and has lasted longer than the prescribed length of [facility] [address] [place] [address] PAIN MANAGEMENT CONSULTATION Name: MYA UMANZORZO AMILCAR Room #: REG [facility]#: [id number] Admission: 12/19/20 Attend Phys: Shira Banerjee Discharge: Date of : 55 Report #: [id number] time. We will have Dr. Misbah Pedroza send the oxycodone 5 mg tablets, #75 for today, 4 and 8 week release as well as his morphine 15 mg tablets 3 times a day, #90 for again 3 months. 2. The patient finds the Remeron beneficial in helping with his depression. He states that it is hard caring for his 24 hours a day with little help from family. We did talk about some private duty help that may come in if he is able to afford a few hours a couple times a week, called benefits at home. The patient will consider this option. He does have a visiting nurse that comes a couple times a month. Remeron will be sent again for a 90-day supply with refills. 3. The patient complains of ongoing knee pain. He unfortunately did fall a couple weeks ago and landed on his knees, which he reports needing to have surgery on. [facility] I did explain to him that Dr. Pedroza does perform knee injections and Synvisc. At this time, the patient is not interested in these options. Time spent with the patient in consultation, reviewing clinical notes, physical exam and correlation of findings to determine pain generators and possible treatment options, 18 minutes. Time spent and preparation for appointment reviewing prescription monitoring system reports, reviewing previous records and proposed treatment options and current medications, 5 minutes. Time spent preparing and sending electronic prescriptions with collaborating physician, Dr. Misbah Pedroza and documentation of visit and plan of treatment 5 minutes. Total time spent 22 minutes. <ELECTRONICALLY SIGNED> By: Shira Banerjee 12/20/20 [id number] [id number] Shira Banerjee /nt
== END ==
LOC: PAIN 09:31
PROVIDERS: ATTEND Clinical Nurse Specialist Adult Health
DX: M54.12 Radiculopathy, cervical region (principal); M54.16 Radiculopathy, lumbar region; G89.29 Other chronic pain; E11.9 Type 2 diabetes mellitus without complications; F32.9 Major depressive disorder, single episode, unspecified; Z79.891 Long term (current) use of opiate analgesic; Z79.899 Other long term (current) drug therapy

== ENCOUNTER → 2021-04-24 | Outpatient (CLI) | payer OTHER ==
[~2021-04-24] VITALS: Ht 185.4 cm; Wt 78.0 kg
[2021-04-24 11:47] VITALS: BP 142/77
--- NOTE | 2021-04-24 11:55 | NUR ---
Pain Clinic Assessment: 1. History of Osteoarthritis: RIGHT SHOULDER KNEES BACK History of Rheumatoid Arthritis: no 2. Height: 6 ft. 1 in. 185.4 cm. Weight: 172.0 lb. oz. 78.019 kg. Patient's BMI: 22.7 3. Vital Signs: BP: 142/77 Pulse: 77 Resp: 18 Temp: 02 Sat: 100 ECG Mon: 4. Pain Intensity: 7 5. Fall Risk: Dizziness: N Needs help standing or walking: N Fallen in the last 3 months: N Fall risk comments: 6. Patient on Blood Thinner: None 7. History of Hypertension: Y 8. Opioid Therapy greater than 6 weeks: Y Opiate Contract Signed: 11/26/15 9. Risk Assessment Tool Provided: LOW-0 10. Functional Assessment Tool: / 11. Recreational Drug Use: Never Drug Type: Tobacco Use: Current Every Day Smoker Tobacco Type: Cigars Amount or Packs/day: 2/DAILY How Many Years: 45 Alcohol Use: No Frequency: Quant:
== END ==
LOC: PAIN 11:22
PROVIDERS: ATTEND Anesthesiology Pain Medicine
DX: M54.12 Radiculopathy, cervical region (principal); M54.16 Radiculopathy, lumbar region; M79.602 Pain in left arm; M79.601 Pain in right arm; M79.605 Pain in left leg; E11.9 Type 2 diabetes mellitus without complications; Z88.8 Allergy status to other drugs, medicaments and biological substances; Z79.84 Long term (current) use of oral hypoglycemic drugs; Z88.6 Allergy status to analgesic agent; Z79.899 Other long term (current) drug therapy